=== PATIENT | male | born 1995 | race Caucasian/White ===

== ENCOUNTER → 2023-10-07 | Outpatient (CLI) | payer BC ==
--- NOTE | 2023-10-08 09:13 | CA ---
Transthoracic Echo Report Name: Jono Tejeda Age: 28 Gender: M : 1995 Exam Date: 10/07/2023 16:50 Exam Location: [facility] Ht (in): 70 Wt (lb): 140 Ordering Physician: Jono Pryor MD Attending/Referring Phys: Konstantin BURROUGHS Lead Network Engineer Becca Castrejon RCS Procedure CPT: Indications: R01.1 Murmur Cardiac Hx: Technical Quality: Good Contrast 1: Total Dose (mL): Contrast 2: Total Dose (mL): MEASUREMENTS (Male / Female) Normal Values 2D ECHO LV Diastolic Diameter PLAX 5.6 cm 4.2 - 5.9 / 3.9 - 5.3 cm LV Systolic Diameter PLAX 3.5 cm IVS Diastolic Thickness 0.6 cm 0.6 - 1.0 / 0.6 - 0.9 cm LVPW Diastolic Thickness 0.9 cm 0.6 - 1.0 / 0.6 - 0.9 cm LV Relative Wall Thickness 0.3 RV Internal Dim ED PLAX 2.7 cm LVOT Diameter 2.2 cm LV Diastolic Volume MOD BP 126.5 cm??? 67 - 155 / 56 - 104 cm??? LV Systolic Volume MOD BP 43.9 cm??? 22 - 58 / 19 - 49 cm??? LV Ejection Fraction MOD BP 65.3 % >= 55 % LV Cardiac Index MOD BP 4030.1 cm???/min???m??? LV Diastolic Volume MOD 4C 135.9 cm??? LV Systolic Volume MOD 4C 37.2 cm??? LV Ejection Fraction MOD 4C 72.6 % LV Cardiac Index MOD 4C 4815.7 cm???/min???m??? LV Diastolic Length 4C 8.5 cm LV Systolic Length 4C 7.1 cm LV Diastolic Volume MOD 2C 117.7 cm??? LV Systolic Volume MOD 2C 51.0 cm??? LV Ejection Fraction MOD 2C 56.7 % LV Cardiac Index MOD 2C 3253.0 cm???/min???m??? LV Diastolic Length 2C 8.4 cm LV Systolic Length 2C 7.3 cm LA Volume 44.6 cm??? 18 - 58 / 22 - 52 cm??? LA Volume Index 25.3 cm???/m??? 16 - 28 cm???/m??? Ascending Aorta Diameter 2.9 cm DOPPLER AV Peak Velocity 143.5 cm/s AV Peak Gradient 8.2 mmHg AV Mean Velocity 88.3 cm/s AV Mean Gradient 3.7 mmHg AV Velocity Time Integral 21.6 cm LVOT Peak Velocity 119.6 cm/s LVOT Peak Gradient 5.7 mmHg LVOT Velocity Time Integral 16.7 cm LVOT Stroke Volume 63.9 cm??? LVOT Stroke Volume Index 35.6 ml/m??? LVOT Cardiac Index 3117.7 cm???/min???m??? AV Area Cont Eq vti 3.0 cm??? AV Area Cont Eq pk 3.2 cm??? MV Area PHT 4.1 cm??? MR Peak Velocity 513.3 cm/s MR Peak Gradient 105.4 mmHg Mitral E Point Velocity 65.4 cm/s Mitral A Point Velocity 40.5 cm/s Mitral E to A Ratio 1.6 MV Deceleration Time 186.0 ms MV E' Velocity 8.5 cm/s Mitral E to MV E' Ratio 7.7 PV Peak Velocity 114.4 cm/s PV Peak Gradient 5.2 mmHg FINDINGS Left Ventricle Left ventricular ejection fraction is estimated at 55-60 %. Left ventricular wall thickness normal. Left ventricular cavity size normal. No obvious regional wall motion abnormalities. Right Ventricle Normal right ventricular size and function. Unable to estimate right ventricular systolic pressure. Right Atrium Normal right atrial size. Left Atrium Normal left atrial size. Mitral Valve Bileaflet mitral valve prolapse. No mitral stenosis. Severe mitral regurgitation by visual. Posteriorly directed mitral regurgitation jet. Aortic Valve Trileaflet aortic valve. No aortic valve stenosis or regurgitation. Tricuspid Valve Structurally normal tricuspid valve. No tricuspid stenosis. Mild tricuspid regurgitation. Pulmonic Valve Structurally normal pulmonic valve. No pulmonic stenosis. Trace pulmonic regurgitation. Pericardium No pericardial effusion. Aorta Normal size aortic root and proximal ascending aorta. CONCLUSIONS Normal left ventricle size and systolic function Bileaflet mitral valve prolapse with severe eccentric mitral regurgitation Mild tricuspid regurgitation Previewed by: Dr. Marian Sen MD (Electronically Signed) Final Date: 08 October 2023 09:13
== END | disposition home or self-care (01) ==
LOC: RADECHMAIN 16:40
PROVIDERS: ATTEND Family Medicine
DX: I34.1 Nonrheumatic mitral (valve) prolapse (principal); I34.0 Nonrheumatic mitral (valve) insufficiency; I07.1 Rheumatic tricuspid insufficiency; R01.1 Cardiac murmur, unspecified
CPT/HCPCS: 93306